=== PATIENT | female | born 1960 | race Caucasian/White ===

== ENCOUNTER → 2022-06-06 15:17 | Outpatient (CLI) | payer OTHER, SELFPAY ==
[2022-06-06 17:53] LABS: COVID19 -Nasal RAPID Negative (Negative)
== END ==
PROVIDERS: Family Provider Nurse Practitioner Primary Care; PCP Physician Assistant Medical; Visit Provider Surgery
DX: Z20.822 Contact with and (suspected) exposure to COVID-19 (principal); Z01.812 Encounter for preprocedural laboratory examination
CPT/HCPCS: 87635; C9803

== ENCOUNTER 2022-06-09 13:05 | Day surgery (SDC) | payer OTHER, SELFPAY ==
--- NOTE | 2022-06-09 | PATH_ITS ---
[facility] Accession Number: [id number] . 01 Material submitted: . colon - DESCENDING COLON POLYP . 01 Diagnosis: Descending Colon, Polyp, Biopsy: Tubular adenoma. [facility] 06/11/2022 1041 Local . 01 Electronically signed: . Elyssa Garcia MD, Pathologist NPI- [id number] . 01 Gross description: . DESCENDING COLON POLYP: Received in formalin is 1 fragment(s) of terrell, soft tissue measuring 0.3 x 0.3 x 0.1 cm submitted entirely in 1 cassette(s) /QBJ 06/10/2022 0717 Local . 01 Pathologist provided ICD-10: D12.4 . 01 CPT . 711618 Specimen Comment: A courtesy copy of this report has been sent to [phone] Performed at: 01 [facility] [address] [place] [address] [id number] MD Lenard Otoole MD Phone: [phone]
[2022-06-09 14:27] VITALS: BP 122/83; PULSE 77; RESP 18; TEMP 36.6; O2SAT 98; BMI 30.9
[2022-06-09] MEDS: SODIUM CHLORIDE 0.9% 1,000 ML 100 ML IV (14:27)
--- NOTE | 2022-06-09 14:59 | PM.HP.1 ---
History of Present Illness History of Present Illness Date Patient Seen: 06/09/22 Time Patient Seen: 14:59 Chief complaint: SDC Narrative: Here for screening colonoscopy Patient History Family & Social History Social History: household members family Tobacco & Substance use: Smoking Status Never smoker alcohol intake current alcohol intake frequency 3 or more drinks per day Substance Use Type does not use Meds Home Medications and Allergies Home Medications Medication Instructions Recorded Confirmed Type bupropion HCl 150 mg tablet,12 hr 150 mg PO BID ##0 03/10/18 06/09/22 History sustained-release (Wellbutrin SR) metoprolol succinate 25 mg 25 tab PO DAILY 06/09/22 06/09/22 History tablet,extended release 24 hr pantoprazole 20 mg tablet,delayed 20 mg PO DAILY 06/09/22 06/09/22 History release Allergies Allergy/AdvReac Type Severity Reaction Status Date / Time INGREDIENT: NDA - NO KNOWN Allergy Unknown Uncoded 03/10/18 11:58 DRUG ALLERGIES Review of Systems Review of Systems ROS: Yes All systems reviewed with the patient and are negative except as otherwise documented Exam Vital Signs (past 8 hours): - 06/09/22 14:27 Temperature 98 F Pulse Rate 77 Respiratory Rate 18 Blood Pressure 122/83 Pulse Oximetry 98 Oxygen Delivery Method Room Air Oxygen Delivery Method Room Air Const General: cooperative HENMT Head: normal to inspection Eyes General: appearance normal, both eyes and all related structures Neck Neck: normal visual inspection Chest Chest: normal inspection of the chest Resp Effort & Inspection: normal respiratory effort Cardio Rate: regular rate GI Inspection: normal to inspection Skin General: no rashes or lesions noted Neuro General: patient alert and patient awake Extrem General: normal to inspection and no pedal edema Psych Appearance: grossly normal Assessment & Plan Assessment & Plan narrative: 62-year-old female here for colon cancer screening. Colonoscopy is pursued today. Time Spent With Patient Critical Care time: I spent a total of [] minutes of critical care time on this patient's care today; this time is exclusive of procedural time.
--- NOTE | 2022-06-09 15:01 | PM.PREOP ---
Pre-operative Note COVID-19 COVID-19 status: Negative Result date/Date tested (Pos, Neg/Pending): 06/06/22 Criteria for continued procedure: Possibility delay results in more complex future surgery or treatment Interval Note History & Physical reviewed/Exam performed by Physician: Yes Changes to H&P: No ASA Class (for procedural sedation): II
--- NOTE | 2022-06-09 16:09 | P.OP.COLON_ITS ---
Operative Date/Time/Diagnoses Date of procedure: 06/09/22 Time of procedure: 16:09 Pre-op diagnosis: Here for colon cancer screening. Post-op diagnosis: same Procedure & Clinicians Study performed: Colonoscopy with cold snare polypectomy Same procedure as scheduled: Yes Indications: Colon cancer screening Surgeon: Ramesh Horvath Procedure Notes SCOAP/Timeout: Done Procedure in detail: After the risks and benefits were explained, written and verbal informed consent was obtained. The patient was brought into the procedure room and placed into the left lateral decubitus position. Please see nurse snaker tractor driver notes for sedation details. Digital rectal examination was accomplished. The scope was introduced into the patient and advanced under direct visualization to the cecum as identified by the appendiceal orifice and ileocecal valve. The scope was slowly withdrawn to carefully examine the mucosa for any defects or lesions. Comprehensive imaging was accomplished throughout the rectum including the dentate line. The colon was decompressed, the scope was then removed from the patient who tolerated the procedure well. Bowel prep adequate Initially we used the adult colonoscope but there was considerable looping that could not be overcome at around the splenic flexure with this scope. I elected to swap out for a pediatric scope. We were then successful at arriving in cecum. Scope withdrawal time: 7 minutes Sedation minutes: 34 Complications: none Impression: Patient had some diverticulosis in the sigmoid. In the proximal descending there was a small sessile polyp perhaps 5 mm removed with cold snare. Patient had a very difficult navigation with the adult colonoscope and looping at around the splenic flexure could not be overcome with this scope. We attempted patient position changes pressure and use of the stiffening agent all unsuccessfully. One we swapped out for the pediatric colonoscope we were then able to navigate through to cecum successfully. Endoscopic diagnosis 1. Colon polyp 2. Diverticulosis 3. Challenging colon navigation Post-procedure Plan for aftercare: 1. Await histopathology 2. Repeat colonoscopy with pediatric colonoscope in 7 years. Disposition: PACU
[2022-06-09 16:13] VITALS: BP 112/48; PULSE 70; RESP 20; TEMP 36.6; O2SAT 100
[2022-06-09 16:18] VITALS: BP 112/70; PULSE 72; RESP 14; O2SAT 100
[2022-06-09 16:22] VITALS: BP 127/78; PULSE 79; RESP 16; O2SAT 100
[2022-06-09 16:27] VITALS: BP 133/72; PULSE 62; RESP 20; O2SAT 100
[2022-06-09 16:35] VITALS: BP 138/72; PULSE 59; RESP 16; O2SAT 99
--- NOTE | 2022-06-09 16:48 | SUR.PHASEII ---
1640:pt A&Ox4, denies any distress and ready to discharge home. Discharge instructions reviewed, and time allowed for questions. IV DC'd intact. Pt left unit via w/c to ER exit to meet family who will transport pt home.
== END 2022-06-09 16:41 | disposition home or self-care (01) ==
PROVIDERS: Family Provider Nurse Practitioner Primary Care; PCP Physician Assistant Medical; Referring Provider Internal Medicine Gastroenterology; Visit Provider Internal Medicine Gastroenterology
PROC: 0DJD8ZZ Inspection of Lower Intestinal Tract, Via Natural or Artificial Opening Endoscopic (ICD-10-PCS; CPT 45378; principal; 2022-06-09 14:30)
DX: Z12.11 Encounter for screening for malignant neoplasm of colon (principal); K57.30 Diverticulosis of large intestine without perforation or abscess without bleeding; D12.4 Benign neoplasm of descending colon
CPT/HCPCS: 45385; J2704